=== PATIENT | male | born 1985 | race Hispanic/Latino ===

== ENCOUNTER 2023-08-20 12:45 | Emergency (ER) | payer SELFPAY ==
[2023-08-20] MEDS ORDERED: Lidocaine 2% Viscous 10 mL, Alum & Magn 30 mL SSW SCH (13:15)
== END 2023-08-20 13:42 | disposition home or self-care (01) ==
LOC: ERS 12:45
DX: R13.10 Dysphagia, unspecified (principal)
CPT/HCPCS: 87081; 87430; 99282